=== PATIENT | male | born 1955 | race Caucasian/White ===

== ENCOUNTER 2017-04-16 07:17 | Outpatient (CLI) | payer MEDICARE, MEDICAID | END 2017-04-16 07:18 | disposition home or self-care (01) | LOC: BICULT 07:17 | PROVIDERS: ATTEND Family Medicine | DX: R32 Unspecified urinary incontinence (principal) | CPT/HCPCS: 76856 ==

== ENCOUNTER 2017-06-17 19:30 | Outpatient (CLI) | payer MEDICARE, MEDICAID | END 2017-06-17 19:31 | disposition home or self-care (01) | LOC: SLEEPLAB 19:30 | PROVIDERS: ATTEND Family Medicine | DX: G47.33 Obstructive sleep apnea (adult) (pediatric) (principal); G47.61 Periodic limb movement disorder; G31.84 Mild cognitive impairment of uncertain or unknown etiology; E66.9 Obesity, unspecified; I10 Essential (primary) hypertension | CPT/HCPCS: 95811 ==

== ENCOUNTER 2017-11-11 03:46 | Emergency (ER) | payer MEDICARE, MEDICAID ==
[2017-11-11] MEDS ORDERED: Ketorolac Tromethamine 30 MG/ML VIAL ONE (05:44)
--- NOTE | 2017-11-11 09:16 | CT ---
PRELIMINARY REPORT/[facility]/EMERGENTY AFTER-HOURS PROCEDURE CT Chest Without Intravenous Contrast CLINICAL HISTORY: 62 years old, male; Injury or trauma; Fall; Initial encounter; Abrasion; Patient HX: Pt fell at [facility]. Pt having rt elbow pain and some rt sided chest pain. Pt in a [place] [facility] and a nurse saw it over skype and wanted him to come in. Pt denies hitting head or loc. TECHNIQUE: Axial computed tomography images of the chest without intravenous contrast. Coronal reformatted images were created and reviewed. COMPARISON: No relevant prior studies available. FINDINGS: Lungs: The lungs are normal. Pleural space: Normal. No pneumothorax. No significant effusion. Heart: The cardiac structures are normal. Mediastinum: The trachea is normal. Thyroid: The visualized thyroid gland is unremarkable. Bones/joints: There are healed left rib fractures. No dislocation. Soft tissues: Normal. Vasculature: The pulmonary arteries are not enlarged. The aorta is normal. Lymph nodes: Normal. No enlarged lymph nodes. IMPRESSION: No acute thoracic pathology. Thank you for allowing us to participate in the care of your patient. Dictated and Authenticated by: Fausto Mendoza MD 11/11/2017 6:58 AM Central Time ([place] & [place]) FINAL REPORT CT CHEST NONCONTRAST PERFORMED ON AN EMERGENCY BASIS: Date: 11/11/17 Time: 0528 hours HISTORY: Cough. Chest injury. FINDINGS: Findings agree with the preliminary report by [facility]. No evidence of pneumothorax or displaced rib frac ture. Lack of contrast limits evaluation of the soft tissues. POS: [facility]
== END 2017-11-11 07:50 | disposition home or self-care (01) ==
LOC: ERS 03:46
DX: S20.211A Contusion of right front wall of thorax, initial encounter (principal); E78.00 Pure hypercholesterolemia, unspecified; F32.9 Major depressive disorder, single episode, unspecified; F17.210 Nicotine dependence, cigarettes, uncomplicated; G47.30 Sleep apnea, unspecified; G47.00 Insomnia, unspecified; Z79.899 Other long term (current) drug therapy; W17.89XA Other fall from one level to another, initial encounter; Y92.129 Unspecified place in nursing home as the place of occurrence of the external cause
CPT/HCPCS: 71250; 96372; J1885

== ENCOUNTER 2018-01-14 20:30 | Outpatient (CLI) | payer MEDICARE, MEDICAID | END 2018-01-14 20:31 | disposition home or self-care (01) | LOC: SLEEPLAB 20:30 | PROVIDERS: ATTEND Family Medicine | DX: G47.33 Obstructive sleep apnea (adult) (pediatric) (principal); R53.83 Other fatigue; F32.9 Major depressive disorder, single episode, unspecified; E66.9 Obesity, unspecified; G31.84 Mild cognitive impairment of uncertain or unknown etiology; Z68.33 Body mass index [BMI] 33.0-33.9, adult | CPT/HCPCS: 95811 ==

== ENCOUNTER 2020-02-22 20:50 | Emergency (ER) | payer MEDICARE, MEDICAID ==
[~2020-02-22 20:50] MED LIST: Iopamidol 370 76% 100 ML VIAL ONE
[2020-02-22 22:14] LABS: #Basophils 0.1 thou/uL (0.0-0.2); #Eosinphils 0.3 thou/uL (0.0-0.7); #Lymphocytes 3.6 thou/uL (1.20-3.40); #Monocytes 0.8 thou/uL (0.11-0.59); #Neutrophils 5.3 thou/uL (1.40-6.50); %Basophils 0.8 % (0.0-1.0); %Eosinophils 3.1 % (0.0-10.0); %Lymphocytes 35.4 % (21.0-51.0); %Monocytes 8.2 % (0.0-10.0); %Neutrophils 52.5 % (42.0-75.0); Hemoglobin 13.6 g/dL (14.0-18.0); Mean Corpuscular HGB CONC 34.3 g/dL (32.0-36.0); Mean Corpuscular Hemoglobin 31.4 pg (27.0-31.0); Mean Corpuscular Volume 91.5 fL (78.0-98.0); Mean Platelet Volume 7.2 fL (7.4-10.4); Platelet Count 251 thou/uL (130-400); RBC Distribution Width 12.3 % (11.5-14.5); Red Blood Cell (RBC) Count 4.33 mill/uL (4.70-6.10)
[2020-02-22 22:44] LABS: ALT (SGPT) 21 U/L (8-55); AST (SGOT) 23 U/L (5-34); Alkaline Phosphatase 48 U/L (40-110); Anion Gap 12 mmol/L (10-20); BUN (Urea Nitrogen) 18 mg/dL (8.4-25.7); Bilirubin, Total 0.3 mg/dL (0.2-1.2); Calc. Creatinine Clearance 0 mL/min (70-130); Calcium 9.1 mg/dL (7.8-10.44); Carbon Dioxide 23 mmol/L (23-31); Chloride 107 mmol/L (98-107); Estimated GFR-MDRD 52; Globulin 3.1 g/dL (2.4-3.5); Glucose 96 mg/dL (80-115); Protein, Total 7.1 g/dL (5.8-8.1); Sodium 138 mmol/L (136-145)
--- NOTE | 2020-02-22 23:36 | CT ---
CT OF THE ABDOMEN AND PELVIS WITH IV CONTRAST INDICATION: History of rectal bleeding following placement of a shampoo bottle of the rectum. COMPARISON: None FINDINGS: ABDOMEN: Lung bases: Clear Liver: No focal lesion. Gallbladder: Normal appearing. Pancreas: Normal. Adrenal glands: Normal. Spleen: Normal. Kidneys and ureters: There is a 1.8 cm superior pole right renal cyst. There is a 2.5 cm cyst in the right mid kidney. No focal left renal lesion is evident. No hydronephrosis is demonstrated. Vasculature: There are mild vascular calcifications seen involving the visualized vasculature. Lymph nodes:No lymphadenopathy. Free fluid in abdomen:No free fluid is evident. PELVIS: Small and large bowel: Normal. There is a radiopaque density within the stomach which is nonspecific. There is a focal area of wall thickening involving the mid to proximal sigmoid colon which may be related to underdistention; however, focal colonic lesion cannot be entirely excluded. This is best s een on image 52 of series 2. Appendix:Normal Bladder: Normal. Rectal and perirectal soft tissues:Normal. Reproductive structures: Normal. Free fluid in pelvis: No free fluid is evident. Lymphadenopathy pelvis: No lymphadenopathy is evident. Osseous structures: There are remote appearing superior endplate compression abnormalities involving L5, L1, T12 and T11. There are bilateral pars defects at L5 with grade 1 anterolisthesis of L5 on S1. There is scattered degenerative and osteoarthritic changes. Soft tissues:Normal. IMPRESSION: 1. Small radiopaque density in the stomach is suspicious for radiopaque foreign body. This measures a pproximately 2.5 cm. 2. Focal area of mild circumferential wall thickening involving the mid to proximal sigmoid colon may be related to underdistention; however, a focal colonic malignancy is not excluded. Recommend appropriate colonic screening. This can be performed in a nonemergent setting. 3. Right renal cysts. 4. Remote appearing superior endplate compression abnormalities involving T11, T12, L1 and L5.
[2020-02-22 23:59] LABS: Prothrombin Time 13.3 sec (12.0-14.7)
[2020-02-23 00:10] LABS: Bilirubin Negative (Negative); Blood, Urine Negative (Negative); Clarity Clear (Clear); Glucose, Urine (Dipstick) Normal (Negative); Ketone, Urine Negative (Negative); Leukocyte Negative Leu/uL (Negative); Nitrite Negative (Negative); Protein, Urine (Dipstick) Negative (Neg-Trace); Specific Gravity, Urine 1.013 (1.002-1.036); Urobilinogen Normal mg/dL (Less than 2); pH, Urine 6.5 (5.0-9.0)
== END 2020-02-23 00:36 | disposition home or self-care (01) ==
LOC: ERS 20:50
DX: T18.2XXA Foreign body in stomach, initial encounter (principal); K62.5 Hemorrhage of anus and rectum; G47.00 Insomnia, unspecified; E78.00 Pure hypercholesterolemia, unspecified; G47.30 Sleep apnea, unspecified; F63.9 Impulse disorder, unspecified; F32.9 Major depressive disorder, single episode, unspecified; F17.210 Nicotine dependence, cigarettes, uncomplicated; K64.8 Other hemorrhoids; Z79.899 Other long term (current) drug therapy
CPT/HCPCS: 36415; 74177; 80053; 81003; 84484; 85025; 85610; 85730; 86850; 86900; 86901; 93005; Q9967

== ENCOUNTER 2020-04-19 17:04 | Emergency (ER) | payer MEDICARE, MEDICAID ==
--- NOTE | 2020-04-19 18:07 | CT ---
Exam: Head CT without contrast HISTORY: Fall. Altered mental status. COMPARISON: none FINDINGS: Hemorrhage: No intraparenchymal hemorrhage or extra-axial hematoma. Brain parenchyma: Cortical jacinto-white matter differentiation is preserved. No mass effect or midline shift. Basilar cisterns are patent. Ventricular system: Ventricles and sulci are patent and symmetric. Calvarium: Intact. Sinuses and mastoid air cells: Adequate aeration. IMPRESSION: No acute intracranial process.
--- NOTE | 2020-04-23 16:53 | EKG ---
Test Reason : Blood Pressure : / mmHG Vent. Rate : 073 BPM Atrial Rate : 073 BPM P-R Int : 228 ms QRS Dur : 128 ms QT Int : 388 ms P-R-T Axes : 034 -19 023 degrees QTc Int : 427 ms Sinus rhythm with 1st degree A-V block Non-specific intra-ventricular conduction block Abnormal ECG Confirmed by ALINE FRAZIER ([id number]), research editor EMILIA VALLES ([id number]) on 04/23/2020 4:52:57 PM Referred By: Confirmed By:ALINE Reno
== END 2020-04-19 18:47 | disposition home or self-care (01) ==
LOC: ERS 17:04
DX: S00.01XA Abrasion of scalp, initial encounter (principal); G47.00 Insomnia, unspecified; E78.00 Pure hypercholesterolemia, unspecified; G47.30 Sleep apnea, unspecified; F17.210 Nicotine dependence, cigarettes, uncomplicated; W06.XXXA Fall from bed, initial encounter; Z79.899 Other long term (current) drug therapy
CPT/HCPCS: 70450; 93005

== ENCOUNTER 2020-05-24 06:35 | Day surgery (SDC) | payer MEDICARE, MEDICAID ==
[2020-05-24] MEDS ORDERED: PROPOFOL 200 MG/20 ML VIAL ONE (08:43)
--- NOTE | 2020-05-24 10:25 | OP ---
DATE OF PROCEDURE: 05/24/2020 PROCEDURES: Esophagogastroduodenoscopy and incomplete colonoscopy. PREOPERATIVE DIAGNOSES: Abnormal CT scan of the abdomen and pelvis showing a possible foreign body in the stomach and thickening of the sigmoid colon, also history of hematochezia, has had chronic constipation as well. DESCRIPTION OF PROCEDURE: Informed consent was obtained. The patient was sedated with total intravenous anesthesia. The bite block was placed and the endoscope was advanced easily to the second portion of the duodenum and retroflexion was performed in the stomach. The esophagus was normal. The GE junction was normal. The stomach was normal including retroflexed views. The pylorus and first and second portions of the duodenum were normal. The patient was turned around. Rectal exam was performed and was normal. The preparation quality was fair and a significant amount of stool was irrigated from the colon. The colonoscope was advanced to the transverse colon. The scope could not be advanced beyond this point due to significant looping in the sigmoid, despite repositioning the patient in abdominal pressure. The mucosa of the transverse and descending and sigmoid and rectum were normal. Retroflexed views in the rectum revealed [id number] internal hemorrhoids. IMPRESSION: 1. Normal esophagogastroduodenoscopy. 2. Colonoscopy to the transverse colon was normal. 3. Incomplete exam due to significant looping in the left colon. 4. The thickening of the sigmoid colon noted by CT scan was likely due to non-distention. There was no mucosal abnormality in the segment. The hematochezia was likely hemorrhoidal. RECOMMENDATIONS: 1. Repeat colonoscopy in 5 years. 2. If the patient has recurrent bleeding, then consider barium enema versus CT colonography. Job ID: [id number]
[2020-05-24] MEDS ORDERED: MD-Gastroview 120 ML BOT ONE (14:13)
--- NOTE | 2020-05-24 15:06 | RAD ---
Barium enema single column HISTORY: Screening. Incomplete colonoscopy. FINDINGS: Thin barium liquid was administered per rectum under fluoroscopic guidance. The sigmoid col on and splenic flexure are very tortuous. Scattered small diverticula arise from the colon. No persistent filling defect or annular constricting lesion. Terminal ileum was partially reflux without focal abnormality. IMPRESSION : Tortuous sigmoid colon and splenic flexure. No acute abnormalities are demonstrated. Mild diverticulosis. No evidence of diverticulitis.
== END 2020-05-24 14:24 | disposition home or self-care (01) ==
LOC: SDC 06:35
PROVIDERS: ATTEND Internal Medicine Gastroenterology
PROC: 0DJ08ZZ Inspection of Upper Intestinal Tract, Via Natural or Artificial Opening Endoscopic (ICD-10-PCS; principal; 2020-05-24)
PROC: 0DJD8ZZ Inspection of Lower Intestinal Tract, Via Natural or Artificial Opening Endoscopic (ICD-10-PCS; 2020-05-24)
DX: K92.1 Melena (principal); K59.09 Other constipation; K64.8 Other hemorrhoids; K57.30 Diverticulosis of large intestine without perforation or abscess without bleeding; Q43.8 Other specified congenital malformations of intestine; F79 Unspecified intellectual disabilities; F32.9 Major depressive disorder, single episode, unspecified; E78.1 Pure hyperglyceridemia; G47.33 Obstructive sleep apnea (adult) (pediatric); F17.210 Nicotine dependence, cigarettes, uncomplicated; Z79.2 Long term (current) use of antibiotics; Z79.899 Other long term (current) drug therapy; Z88.2 Allergy status to sulfonamides
CPT/HCPCS: 74280; J2704; Q9963

== ENCOUNTER 2020-06-09 10:04 | Emergency (ER) | payer MEDICARE, MEDICAID | END 2020-06-09 11:11 | disposition home or self-care (01) | LOC: ERS 10:04 | DX: Z20.822 Contact with and (suspected) exposure to COVID-19 (principal); E78.00 Pure hypercholesterolemia, unspecified; F17.210 Nicotine dependence, cigarettes, uncomplicated | CPT/HCPCS: 99283 ==

== ENCOUNTER 2021-05-07 18:41 | Emergency (ER) | payer OTHER, MEDICARE, MEDICAID ==
[2021-05-07] MEDS ORDERED: Boostrix 0.5 ML (Tdap) VIAL ONE (20:28)
== END 2021-05-07 20:45 | disposition home or self-care (01) ==
LOC: ERS 18:41
DX: S00.83XA Contusion of other part of head, initial encounter (principal); Z79.899 Other long term (current) drug therapy; W01.0XXA Fall on same level from slipping, tripping and stumbling without subsequent striking against object, initial encounter
CPT/HCPCS: 70450; 72125; 90471; 90715

== ENCOUNTER 2021-05-18 20:12 | Emergency (ER) | payer MEDICARE, MEDICAID ==
[2021-05-18] MEDS ORDERED: Bacitracin 1 PK ONE (21:35)
== END 2021-05-18 22:22 | disposition home or self-care (01) ==
LOC: ERS 20:12
DX: S63.255A Unspecified dislocation of left ring finger, initial encounter (principal); W19.XXXA Unspecified fall, initial encounter
CPT/HCPCS: 26770

== ENCOUNTER 2021-05-22 12:15 | Outpatient (CLI) | payer MEDICARE, MEDICAID | END 2021-05-22 12:16 | disposition home or self-care (01) | LOC: BICRAD 12:15 | PROVIDERS: ATTEND Family Medicine | DX: S63.104A Unspecified dislocation of right thumb, initial encounter (principal); S62.521A Displaced fracture of distal phalanx of right thumb, initial encounter for closed fracture; W19.XXXA Unspecified fall, initial encounter ==

== ENCOUNTER 2023-01-10 12:01 | Emergency (ER) | payer MEDICARE, MEDICAID ==
[~2023-01-10 12:01] MED LIST changes: -Iopamidol 370 76% 100 ML VIAL ONE; +Iopamidol-370 76% 500 ML MDV (1 ML CHARGE) ONE
[2023-01-10 13:06] LABS: #Eosinphils 0.1 thou/uL (0.0-0.7); #Monocytes 0.6 thou/uL (0.11-0.59); #Neutrophils 5.4 thou/uL (1.40-6.50); %Basophils 0.4 % (0.0-1.0); %Lymphocytes 24.7 % (21.0-51.0); %Monocytes 7.5 % (0.0-10.0); %Neutrophils 66.2 % (42.0-75.0); Hematocrit 41.1 % (42.0-52.0); Mean Corpuscular HGB CONC 34.1 g/dL (32.0-36.0); Mean Corpuscular Hemoglobin 30.7 pg (27.0-31.0); Mean Corpuscular Volume 90.1 fl (78.0-98.0); Mean Platelet Volume 9.4 fL (7.4-10.4); Platelet Count 236 10x3/uL (130-400); RBC Distribution Width 12.9 % (11.5-14.5); Red Blood Cell (RBC) Count 4.56 mill/uL (4.70-6.10); White Blood Cell (WBC) Count 8.1 10x3/uL (4.8-10.8)
[2023-01-10 13:30] LABS: ALT (SGPT) 18 U/L (8-55); AST (SGOT) 17 U/L (5-34); Albumin 4.3 g/dL (3.4-4.8); Alkaline Phosphatase 53 U/L (40-110); Anion Gap 11 mmol/L (10-20); BUN (Urea Nitrogen) 34 mg/dL (8.4-25.7); Bilirubin, Total 0.4 mg/dL (0.2-1.2); Calc. Creatinine Clearance 0 mL/min (70-130); Calcium 9.6 mg/dL (7.8-10.44); Carbon Dioxide 21 mmol/L (23-31); Chloride 113 mmol/L (98-107); Estimated GFR 85; Globulin 2.9 g/dL (2.4-3.5); Glucose 106 mg/dL (80-115); Lipase 38 U/L (8-78); Potassium 3.8 mmol/L (3.5-5.1); Protein, Total 7.2 g/dL (5.8-8.1); Sodium 141 mmol/L (136-145)
[2023-01-10 13:49] LABS: Bilirubin Negative (Negative); Blood, Urine Negative (Negative); CAUTI Indications for Culture Pelvic or flank pain; Clarity Clear (Clear); Glucose, Urine (Dipstick) Normal (Negative); Ketone, Urine Negative (Negative); Leukocyte Negative Leu/uL (Negative); Nitrite Negative (Negative); Protein, Urine (Dipstick) Negative (Neg-Trace); RBC/HPF 0-3 HPF (0-3); Specific Gravity, Urine 1.027 (1.002-1.036); Squamous Epithelial 0-3 HPF (0-3); Urobilinogen Normal mg/dL (Less than 2)
[2023-01-10 13:52] LABS: Bacteria/HPF 1+ HPF (None Seen)
[2023-01-10 13:54] LABS: Urine Culture Reflex No No
== END 2023-01-10 16:12 | disposition home or self-care (01) ==
LOC: ERS 12:01
DX: R19.7 Diarrhea, unspecified (principal); F17.210 Nicotine dependence, cigarettes, uncomplicated
CPT/HCPCS: 74177; 80053; 81001; 83690; 85025; Q9967

== ENCOUNTER 2024-02-20 11:28 | Emergency (ER) | payer MEDICARE, MEDICAID ==
[2024-02-20] MEDS ORDERED: Acetaminophen 500 MG TAB ONE (12:51)
== END 2024-02-20 13:21 | disposition home or self-care (01) ==
LOC: ERS 11:28
DX: M25.552 Pain in left hip (principal); F17.210 Nicotine dependence, cigarettes, uncomplicated; I10 Essential (primary) hypertension
CPT/HCPCS: 99283

== ENCOUNTER 2024-02-23 09:49 | Emergency (ER) | payer MEDICARE, MEDICAID ==
[2024-02-23 10:33] LABS: Bacteria/HPF None Seen HPF (None Seen); Bilirubin Negative (Negative); Blood, Urine Negative (Negative); CAUTI Indications for Culture Alt mental st,lethar; Clarity Clear (Clear); Glucose, Urine (Dipstick) Normal (Negative); Ketone, Urine Negative (Negative); Leukocyte Negative Leu/uL (Negative); Nitrite Negative (Negative); Protein, Urine (Dipstick) Negative (Neg-Trace); RBC/HPF None Seen HPF (0-3); Specific Gravity, Urine 1.005 (1.002-1.036); Squamous Epithelial None Seen HPF (0-3); Urobilinogen Normal mg/dL (Less than 2); WBC/HPF 0-3 HPF (0-3)
[2024-02-23 10:36] LABS: #Basophils 0.03 10x3/uL (0.0-0.2); %Basophils 0.3 % (0.0-1.0); %Eosinophils 0.7 % (0.0-10.0); %Lymphocytes 24.5 % (21.0-51.0); %Monocytes 8.9 % (0.0-10.0); %Neutrophils 65.2 % (42.0-75.0); Hematocrit 43.5 % (42.0-52.0); Hemoglobin 14.5 g/dL (14.0-18.0); Mean Corpuscular HGB CONC 33.3 g/dL (32.0-36.0); Mean Corpuscular Hemoglobin 29.8 pg (27.0-31.0); Mean Corpuscular Volume 89.3 fL (78.0-98.0); Platelet Count 263 10x3/uL (130-400); RBC Distribution Width 12.9 % (11.5-14.5); Red Blood Cell (RBC) Count 4.87 mill/uL (4.70-6.10)
[2024-02-23] MEDS ORDERED: Ketorolac Tromethamine 30 MG (1 mL) VIAL ONE (10:36)
[2024-02-23 10:52] LABS: Urine Culture Reflex No No
[2024-02-23 10:59] LABS: ALT (SGPT) 19 U/L (8-55); AST (SGOT) 16 U/L (5-34); Albumin 3.4 g/dL (3.4-4.8); Alkaline Phosphatase 66 U/L (40-110); Anion Gap 11 mmol/L (10-20); BUN (Urea Nitrogen) 19 mg/dL (8.4-25.7); Bilirubin, Total 0.4 mg/dL (0.2-1.2); Calc. Creatinine Clearance 0 mL/min (70-130); Calcium 9.1 mg/dL (7.8-10.44); Carbon Dioxide 23 mmol/L (23-31); Chloride 109 mmol/L (98-107); Estimated GFR 88; Globulin 3.2 g/dL (2.4-3.5); Glucose 100 mg/dL (83-110); Potassium 3.8 mmol/L (3.5-5.1); Protein, Total 6.6 g/dL (5.8-8.1); Sodium 139 mmol/L (136-145)
== END 2024-02-23 14:30 | disposition home or self-care (01) ==
LOC: ERS 09:49
DX: S70.02XA Contusion of left hip, initial encounter (principal); I10 Essential (primary) hypertension; F17.210 Nicotine dependence, cigarettes, uncomplicated; W19.XXXA Unspecified fall, initial encounter; Y93.01 Activity, walking, marching and hiking; Z55.3 Underachievement in school; Z75.3 Unavailability and inaccessibility of health-care facilities
CPT/HCPCS: 36415; 72170; 80053; 81001; 85025; 99284; J1885

== ENCOUNTER 2024-03-16 16:30 | Inpatient (IN) | payer MEDICARE, MEDICAID ==
[2024-03-16] MEDS ORDERED: Ondansetron PF 4 MG/2 ML Vial ONE ×2 (19:04→19:50)
[2024-03-16 20:06] LABS: #Basophils Less than 0.03 10x3/uL (0.0-0.2); #Eosinophils Less than 0.03 10x3/uL (0.0-0.7); %Basophils 0.2 % (0.0-1.0); %Lymphocytes 15.8 % (21.0-51.0); %Monocytes 4.7 % (0.0-10.0); %Neutrophils 79.1 % (42.0-75.0); Hematocrit 53.9 % (42.0-52.0); Hemoglobin 17.4 g/dL (14.0-18.0); Mean Corpuscular HGB CONC 32.3 g/dL (32.0-36.0); Mean Corpuscular Hemoglobin 29.7 pg (27.0-31.0); Mean Corpuscular Volume 92.1 fL (78.0-98.0); Platelet Count 359 10x3/uL (130-400); RBC Distribution Width 13.3 % (11.5-14.5); Red Blood Cell (RBC) Count 5.85 mill/uL (4.70-6.10)
[2024-03-16 20:23] LABS: Anion Gap 21 mmol/L (10-20); BUN (Urea Nitrogen) 46 mg/dL (8.4-25.7); Calc. Creatinine Clearance 0 mL/min (70-130); Carbon Dioxide 14 mmol/L (23-31); Chloride 107 mmol/L (98-107); Potassium 3.6 mmol/L (3.5-5.1); Sodium 138 mmol/L (136-145)
[2024-03-16 20:24] LABS: ALT (SGPT) 25 U/L (8-55); AST (SGOT) 18 U/L (5-34); Albumin 4.4 g/dL (3.4-4.8); Alkaline Phosphatase 85 U/L (40-110); Bilirubin, Total 0.4 mg/dL (0.2-1.2); Calcium 9.7 mg/dL (7.8-10.44); Estimated GFR 36; Globulin 4.7 g/dL (2.4-3.5); Glucose 186 mg/dL (83-110); Lipase 12 U/L (8-78); Protein, Total 9.1 g/dL (5.8-8.1)
[2024-03-16 20:29] LABS: Troponin I 0.013 ng/mL (< 0.028)
[2024-03-16 20:45] LABS: Acetaminophen Less than 10 mcg/mL (Less than 10); Alcohol Less than 10.0 mg/dL (Less than 10); Salicylate Less than 8.0 mg/dL (Less than 8.0)
[2024-03-16] MEDS ORDERED: Pantoprazole 40 MG VIAL ONE (21:05)
[2024-03-16 23:37] LABS: Lactic Acid 4.61 mmol/L (0.5-2.2)
[2024-03-17] MEDS ORDERED: Ondansetron ODT 4 MG TAB PO PRN ×2 (00:48→08:13)
[2024-03-17] MEDS ORDERED: guaiFENesin ER 600 MG TAB PO PRN (00:48)
[2024-03-17 02:16] LABS: Bacteria/HPF None Seen HPF (None Seen); Bilirubin Negative (Negative); Blood, Urine Negative (Negative); CAUTI Indications for Culture Pelvic or flank pain; Clarity Clear (Clear); Glucose, Urine (Dipstick) Normal (Negative); Ketone, Urine Negative (Negative); Leukocyte 75 Leu/uL (Negative); Nitrite Negative (Negative); Protein, Urine (Dipstick) 20 mg/dL (Neg-Trace); RBC/HPF 0-3 HPF (0-3); Squamous Epithelial 0-3 HPF (0-3); Urobilinogen Normal mg/dL (Less than 2); WBC/HPF 0-3 HPF (0-3)
[2024-03-17 02:17] LABS: Specific Gravity, Urine 1.051 (1.002-1.036)
[2024-03-17 02:18] LABS: Urine Culture Reflex No No
[2024-03-17] MEDS: Lactated Ringer's 1,000 ML IV SCH (03:02)
[2024-03-17 03:09] LABS: Amphetamine Not Detected (NotDetected); Barbiturates Screen Not Detected (NotDetected); Benzodiazepine Screen Not Detected (NotDetected); Cocaine Metabolite Screen Not Detected (NotDetected); Methadone Not Detected (NotDetected); Methamphetamine Not Detected (NotDetected); Opiate Screen Not Detected (NotDetected); Oxycodone Screen Not Detected (NotDetected); Phencyclidine (PCP) Not Detected (NotDetected); THC/Cannabinoid Screen Not Detected (NotDetected); Tricyclic Screen Detected (NotDetected)
[2024-03-17 06:11] LABS: #Basophils 0.04 10x3/uL (0.0-0.2); %Basophils 0.4 % (0.0-1.0); %Eosinophils 0.6 % (0.0-10.0); %Lymphocytes 11.2 % (21.0-51.0); %Monocytes 13.1 % (0.0-10.0); %Neutrophils 74.4 % (42.0-75.0); Hematocrit 47.1 % (42.0-52.0); Hemoglobin 14.8 g/dL (14.0-18.0); Mean Corpuscular HGB CONC 31.4 g/dL (32.0-36.0); Mean Corpuscular Hemoglobin 29.6 pg (27.0-31.0); Mean Corpuscular Volume 94.2 fL (78.0-98.0); Mean Platelet Volume 9.2 fL (7.4-10.4); Platelet Count 242 10x3/uL (130-400); RBC Distribution Width 13.5 % (11.5-14.5)
[2024-03-17 06:24] LABS: Lactic Acid 3.26 mmol/L (0.5-2.2)
[2024-03-17 07:22] LABS: Anion Gap 15 mmol/L (10-20); BUN (Urea Nitrogen) 40 mg/dL (8.4-25.7); Calc. Creatinine Clearance 77 mL/min (70-130); Calcium 8.4 mg/dL (7.8-10.44); Carbon Dioxide 18 mmol/L (23-31); Chloride 113 mmol/L (98-107); Estimated GFR 62; Glucose 129 mg/dL (83-110); Potassium 3.4 mmol/L (3.5-5.1); Sodium 143 mmol/L (136-145)
[2024-03-17] MEDS ORDERED: Ondansetron PF 4 MG/2 ML Vial IVP PRN (08:13)
[2024-03-17] MEDS ORDERED: Acetaminophen 325 MG TAB PO PRN (08:13)
[2024-03-17 08:47] VITALS: BMI 32.7
[2024-03-17] MEDS ORDERED: PARoxetine 20 MG TAB PO SCH (09:00)
[2024-03-17] MEDS: Heparin 5,000 UNITS/ML VIAL SC SCH (09:36)
[2024-03-17] MEDS: Potassium Chloride 20 MEQ TAB PO SCH (09:36)
[2024-03-17] MEDS ORDERED: Aripiprazole 10 MG TAB PO SCH (21:00)
[2024-03-18 04:18] LABS: #Basophils Less than 0.03 10x3/uL (0.0-0.2); %Basophils 0.1 % (0.0-1.0); %Eosinophils 1.4 % (0.0-10.0); %Lymphocytes 23.7 % (21.0-51.0); %Monocytes 13.7 % (0.0-10.0); Hematocrit 42.2 % (42.0-52.0); Hemoglobin 14.1 g/dL (14.0-18.0); Mean Corpuscular HGB CONC 33.4 g/dL (32.0-36.0); Mean Corpuscular Hemoglobin 29.8 pg (27.0-31.0); Mean Corpuscular Volume 89.2 fL (78.0-98.0); Mean Platelet Volume 8.8 fL (7.4-10.4); Platelet Count 237 10x3/uL (130-400); RBC Distribution Width 13.3 % (11.5-14.5); Red Blood Cell (RBC) Count 4.73 mill/uL (4.70-6.10)
[2024-03-18 04:40] LABS: Anion Gap 11 mmol/L (10-20); BUN (Urea Nitrogen) 29 mg/dL (8.4-25.7); Calc. Creatinine Clearance 102 mL/min (70-130); Calcium 8.5 mg/dL (7.8-10.44); Carbon Dioxide 24 mmol/L (23-31); Chloride 108 mmol/L (98-107); Estimated GFR 78; Glucose 108 mg/dL (83-110); Potassium 2.9 mmol/L (3.5-5.1); Sodium 140 mmol/L (136-145)
[2024-03-18] MEDS ORDERED: Ondansetron ORAL SOLN. 4 MG/5 ML UDCUP PO PRN (07:06)
[2024-03-18] MEDS: Ondansetron PF 4 MG/2 ML Vial IVP PRN (09:56)
[2024-03-18] MEDS: Potassium Chloride 20 MEQ TAB PO SCH ×3 (09:57→18:12)
[2024-03-18] MEDS: NIFEdipine XL 30 MG ER.TAB PO SCH (09:57)
[2024-03-18] MEDS: Lactated Ringer's 1,000 ML IV SCH ×2 (09:58)
[2024-03-18] MEDS: PARoxetine 20 MG TAB PO SCH (10:01)
[2024-03-18 10:07] LABS: Lactic Acid 1.12 mmol/L (0.5-2.2)
[2024-03-18] MEDS: Atorvastatin Calcium 10 MG TAB PO SCH (12:00)
[2024-03-18] MEDS: Fish Oil 1,000 MG CAP PO SCH (12:00)
[2024-03-18] MEDS: Tamsulosin HCl 0.4 MG CAP PO SCH (12:01)
[2024-03-18] MEDS: Mirabegron ER 25 MG ER.TAB PO SCH (12:01)
[2024-03-18] MEDS: Fluticasone Propionate Nasal Spray 16 gm Bottle NASAL SCH (12:01)
[2024-03-18] MEDS: Topiramate 100 MG TAB PO SCH (12:01)
[2024-03-18] MEDS: Potassium Chloride 20 MEQ in Premix 1 BAG IVPB SCH ×3 (12:19→19:46)
[2024-03-18 13:40] LABS: Campy jejuni + coli by PCR Negative (Negative); STEC Shiga Toxin 1+2 Negative (Negative); Salmonella spp. by PCR Negative (Negative); Shigella spp + EIEC by PCR Negative (Negative)
[2024-03-18 14:38] LABS: Anion Gap 16 mmol/L (10-20); BUN (Urea Nitrogen) 30 mg/dL (8.4-25.7); Calc. Creatinine Clearance 123 mL/min (70-130); Calcium 8.8 mg/dL (7.8-10.44); Carbon Dioxide 19 mmol/L (23-31); Chloride 106 mmol/L (98-107); Estimated GFR 93; Glucose 147 mg/dL (83-110); Potassium 2.8 mmol/L (3.5-5.1); Sodium 138 mmol/L (136-145)
[2024-03-18] MEDS ORDERED: MD-Gastroview 120 ML BOT ONE (16:07)
[2024-03-18] MEDS ORDERED: NIFEdipine XL 30 MG ER.TAB PO SCH (20:00)
[2024-03-18] MEDS ORDERED: Aripiprazole 10 MG TAB PO SCH (21:00)
[2024-03-18] MEDS: Labetalol HCl 100 MG/20 ML VIAL SLOW IVP SCH (21:30)
[2024-03-18] MEDS: Promethazine HCl 25 MG in Sodium Chloride 0.9% 50 ML IVPB PRN (23:01)
[2024-03-19 04:43] LABS: #Basophils Less than 0.03 10x3/uL (0.0-0.2); #Eosinophils Less than 0.03 10x3/uL (0.0-0.7); %Basophils 0.2 % (0.0-1.0); %Eosinophils 0.1 % (0.0-10.0); %Lymphocytes 18.1 % (21.0-51.0); %Monocytes 11.3 % (0.0-10.0); %Neutrophils 69.9 % (42.0-75.0); Hematocrit 42.3 % (42.0-52.0); Hemoglobin 14.2 g/dL (14.0-18.0); Mean Corpuscular HGB CONC 33.6 g/dL (32.0-36.0); Mean Corpuscular Hemoglobin 29.9 pg (27.0-31.0); Mean Corpuscular Volume 89.1 fL (78.0-98.0); Mean Platelet Volume 9.1 fL (7.4-10.4); Platelet Count 242 10x3/uL (130-400); RBC Distribution Width 13.2 % (11.5-14.5); Red Blood Cell (RBC) Count 4.75 mill/uL (4.70-6.10)
[2024-03-19 05:05] LABS: Anion Gap 13 mmol/L (10-20); BUN (Urea Nitrogen) 28 mg/dL (8.4-25.7); Calc. Creatinine Clearance 123 mL/min (70-130); Calcium 8.5 mg/dL (7.8-10.44); Carbon Dioxide 19 mmol/L (23-31); Chloride 111 mmol/L (98-107); Estimated GFR 93; Glucose 125 mg/dL (83-110); Potassium 2.8 mmol/L (3.5-5.1); Sodium 140 mmol/L (136-145)
[2024-03-19] MEDS ORDERED: Potassium Chloride 20 MEQ in Premix 1 BAG IVPB SCH (07:00)
[2024-03-19] MEDS ORDERED: Lactated Ringer's 1,000 ML IV SCH (07:15)
[2024-03-19 07:45] LABS: Hemoglobin A1c 5.5 % (4.0-6.0)
[2024-03-19] MEDS ORDERED: Potassium Chloride 20 MEQ TAB PO SCH (07:59)
[2024-03-19] MEDS: Potassium Chloride 20 MEQ in Premix 1 BAG IVPB SCH ×2 (10:12→21:41)
[2024-03-19] MEDS ORDERED: Iopamidol-370 76% 500 ML MDV (1 ML CHARGE) ONE (11:51)
[2024-03-19] MEDS: NIFEdipine XL 30 MG ER.TAB PO SCH (12:03)
[2024-03-19] MEDS: Potassium Chloride 20 MEQ in Lactated Ringer's 1,000 ML IV SCH (12:17)
[2024-03-19 14:19] LABS: Anion Gap 12 mmol/L (10-20); BUN (Urea Nitrogen) 27 mg/dL (8.4-25.7); Calc. Creatinine Clearance 132 mL/min (70-130); Calcium 8.7 mg/dL (7.8-10.44); Carbon Dioxide 22 mmol/L (23-31); Chloride 112 mmol/L (98-107); Estimated GFR 95; Glucose 123 mg/dL (83-110); Potassium 2.7 mmol/L (3.5-5.1); Sodium 143 mmol/L (136-145)
[2024-03-19 18:48] LABS: Anion Gap 14 mmol/L (10-20); BUN (Urea Nitrogen) 27 mg/dL (8.4-25.7); Calc. Creatinine Clearance 132 mL/min (70-130); Calcium 8.2 mg/dL (7.8-10.44); Carbon Dioxide 15 mmol/L (23-31); Chloride 115 mmol/L (98-107); Estimated GFR 95; Glucose 123 mg/dL (83-110); Potassium 3.1 mmol/L (3.5-5.1); Sodium 141 mmol/L (136-145)
[2024-03-20 04:44] LABS: #Basophils 0.03 10x3/uL (0.0-0.2); %Basophils 0.3 % (0.0-1.0); %Eosinophils 0.6 % (0.0-10.0); %Monocytes 9.4 % (0.0-10.0); Hematocrit 38.4 % (42.0-52.0); Mean Corpuscular HGB CONC 33.9 g/dL (32.0-36.0); Mean Corpuscular Hemoglobin 29.5 pg (27.0-31.0); Mean Corpuscular Volume 87.3 fL (78.0-98.0); Platelet Count 208 10x3/uL (130-400); RBC Distribution Width 13.3 % (11.5-14.5)
[2024-03-20 05:11] LABS: Anion Gap 12 mmol/L (10-20); BUN (Urea Nitrogen) 20 mg/dL (8.4-25.7); Calc. Creatinine Clearance 143 mL/min (70-130); Carbon Dioxide 21 mmol/L (23-31); Chloride 112 mmol/L (98-107); Estimated GFR 97; Glucose 103 mg/dL (83-110); Potassium 2.9 mmol/L (3.5-5.1); Sodium 142 mmol/L (136-145)
[2024-03-20] MEDS: Potassium Chloride 20 MEQ in Premix 1 BAG IVPB SCH (10:51)
[2024-03-20] MEDS ORDERED: Enalaprilat Dihydrate 1.25 MG in Dextrose 5% in Water 50 ML SLOW IVP SCH (12:00)
[2024-03-20] MEDS: Enalaprilat Dihydrate 1.25 MG/ML VIAL SLOW IVP SCH (13:31)
[2024-03-20 14:31] LABS: Anion Gap 14 mmol/L (10-20); BUN (Urea Nitrogen) 16 mg/dL (8.4-25.7); Calc. Creatinine Clearance 165 mL/min (70-130); Calcium 8.1 mg/dL (7.8-10.44); Carbon Dioxide 22 mmol/L (23-31); Chloride 108 mmol/L (98-107); Estimated GFR 102; Glucose 101 mg/dL (83-110); Potassium 3.3 mmol/L (3.5-5.1); Sodium 141 mmol/L (136-145)
[2024-03-20] MEDS: Labetalol HCl 100 MG/20 ML VIAL SLOW IVP PRN (15:29)
[2024-03-20 19:24] LABS: Anion Gap 13 mmol/L (10-20); BUN (Urea Nitrogen) 16 mg/dL (8.4-25.7); Calc. Creatinine Clearance 170 mL/min (70-130); Calcium 8.2 mg/dL (7.8-10.44); Carbon Dioxide 21 mmol/L (23-31); Chloride 109 mmol/L (98-107); Estimated GFR 103; Glucose 103 mg/dL (83-110); Potassium 3.6 mmol/L (3.5-5.1); Sodium 139 mmol/L (136-145)
[2024-03-21 05:17] LABS: #Basophils 0.05 10x3/uL (0.0-0.2); %Basophils 0.4 % (0.0-1.0); %Eosinophils 0.8 % (0.0-10.0); %Lymphocytes 19.6 % (21.0-51.0); %Monocytes 9.3 % (0.0-10.0); %Neutrophils 67.7 % (42.0-75.0); Hematocrit 41.9 % (42.0-52.0); Mean Corpuscular HGB CONC 33.4 g/dL (32.0-36.0); Mean Corpuscular Hemoglobin 29.7 pg (27.0-31.0); Mean Corpuscular Volume 88.8 fL (78.0-98.0); Mean Platelet Volume 9.3 fL (7.4-10.4); Platelet Count 238 10x3/uL (130-400); RBC Distribution Width 13.2 % (11.5-14.5); Red Blood Cell (RBC) Count 4.72 mill/uL (4.70-6.10)
[2024-03-21 05:52] LABS: Anion Gap 15 mmol/L (10-20); BUN (Urea Nitrogen) 16 mg/dL (8.4-25.7); Calc. Creatinine Clearance 153 mL/min (70-130); Calcium 8.4 mg/dL (7.8-10.44); Carbon Dioxide 19 mmol/L (23-31); Chloride 109 mmol/L (98-107); Estimated GFR 99; Glucose 101 mg/dL (83-110); Potassium 3.7 mmol/L (3.5-5.1); Sodium 139 mmol/L (136-145)
[2024-03-21] MEDS ORDERED: PROPOFOL 40 ML ONE (08:05)
[2024-03-21] MEDS ORDERED: Lidocaine 1% PF 5 ML VIAL ONE (08:14)
[2024-03-21] MEDS ORDERED: PROPOFOL 20 ML ONE (08:36)
[2024-03-22 04:37] LABS: #Basophils 0.08 10x3/uL (0.0-0.2); %Basophils 0.6 % (0.0-1.0); %Eosinophils 1.3 % (0.0-10.0); %Lymphocytes 24.7 % (21.0-51.0); %Neutrophils 60.8 % (42.0-75.0); Hematocrit 42.1 % (42.0-52.0); Hemoglobin 13.6 g/dL (14.0-18.0); Mean Corpuscular HGB CONC 32.3 g/dL (32.0-36.0); Mean Corpuscular Hemoglobin 29.4 pg (27.0-31.0); Mean Corpuscular Volume 91.1 fL (78.0-98.0); Mean Platelet Volume 9.2 fL (7.4-10.4); Platelet Count 207 10x3/uL (130-400); RBC Distribution Width 13.2 % (11.5-14.5); Red Blood Cell (RBC) Count 4.62 mill/uL (4.70-6.10)
[2024-03-22 05:05] LABS: Anion Gap 15 mmol/L (10-20); BUN (Urea Nitrogen) 16 mg/dL (8.4-25.7); Calc. Creatinine Clearance 154 mL/min (70-130); Calcium 8.1 mg/dL (7.8-10.44); Carbon Dioxide 21 mmol/L (23-31); Chloride 106 mmol/L (98-107); Estimated GFR 100; Glucose 81 mg/dL (83-110); Potassium 3.6 mmol/L (3.5-5.1); Sodium 138 mmol/L (136-145)
[2024-03-22] MEDS: Acetaminophen 325 MG TAB PO PRN (16:12)
[2024-03-22] MEDS: NIFEdipine XL 30 MG ER.TAB PO SCH (16:15)
[2024-03-23 06:23] LABS: #Basophils 0.03 10x3/uL (0.0-0.2); %Basophils 0.3 % (0.0-1.0); %Eosinophils 1.2 % (0.0-10.0); %Lymphocytes 25.3 % (21.0-51.0); %Monocytes 9.2 % (0.0-10.0); Hematocrit 42.2 % (42.0-52.0); Hemoglobin 14.1 g/dL (14.0-18.0); Mean Corpuscular HGB CONC 33.4 g/dL (32.0-36.0); Mean Corpuscular Hemoglobin 29.7 pg (27.0-31.0); Mean Corpuscular Volume 88.8 fL (78.0-98.0); Mean Platelet Volume 8.9 fL (7.4-10.4); Platelet Count 224 10x3/uL (130-400); RBC Distribution Width 13.1 % (11.5-14.5); Red Blood Cell (RBC) Count 4.75 mill/uL (4.70-6.10)
[2024-03-23 06:50] LABS: Anion Gap 17 mmol/L (10-20); BUN (Urea Nitrogen) 11 mg/dL (8.4-25.7); Calc. Creatinine Clearance 132 mL/min (70-130); Calcium 8.5 mg/dL (7.8-10.44); Carbon Dioxide 24 mmol/L (23-31); Chloride 101 mmol/L (98-107); Estimated GFR 96; Glucose 99 mg/dL (83-110); Potassium 3.6 mmol/L (3.5-5.1); Sodium 138 mmol/L (136-145)
[2024-03-23] MEDS: NIFEdipine XL 30 MG ER.TAB PO SCH (08:49)
[2024-03-24 04:47] LABS: #Basophils 0.03 10x3/uL (0.0-0.2); %Basophils 0.2 % (0.0-1.0); %Lymphocytes 22.3 % (21.0-51.0); %Monocytes 6.7 % (0.0-10.0); %Neutrophils 68.7 % (42.0-75.0); Hematocrit 41.8 % (42.0-52.0); Hemoglobin 13.9 g/dL (14.0-18.0); Mean Corpuscular HGB CONC 33.3 g/dL (32.0-36.0); Mean Corpuscular Hemoglobin 29.5 pg (27.0-31.0); Mean Corpuscular Volume 88.7 fL (78.0-98.0); Mean Platelet Volume 9.7 fL (7.4-10.4); Platelet Count 267 10x3/uL (130-400); RBC Distribution Width 13.3 % (11.5-14.5); Red Blood Cell (RBC) Count 4.71 mill/uL (4.70-6.10)
[2024-03-24 05:08] LABS: Anion Gap 14 mmol/L (10-20); BUN (Urea Nitrogen) 13 mg/dL (8.4-25.7); Calc. Creatinine Clearance 132 mL/min (70-130); Calcium 8.4 mg/dL (7.8-10.44); Carbon Dioxide 24 mmol/L (23-31); Chloride 104 mmol/L (98-107); Estimated GFR 96; Glucose 110 mg/dL (83-110); Potassium 3.6 mmol/L (3.5-5.1); Sodium 138 mmol/L (136-145)
[2024-03-24] MEDS: Metoprolol Tartrate 50 MG TAB PO SCH (11:24)
[2024-03-24 15:00] LABS: Bilirubin Small (Negative); Blood, Urine Large (Negative); Glucose, Urine (Dipstick) Negative (Negative); Ketone, Urine Negative (Negative); Leukocyte Moderate (Negative); Nitrite Positive (Negative); Protein, Urine (Dipstick) 100 mg/dL (Neg-Trace); Specific Gravity, Urine 1.025 (1.005-1.030); pH, Urine 6.5 (5.0-9.0)
[2024-03-24 15:09] LABS: Clarity Turbid (Clear)
[2024-03-24 15:32] LABS: Bacteria/HPF 2+ HPF (None Seen); RBC/HPF 21-50 HPF (0-3); Squamous Epithelial 0-3 HPF (0-3)
[2024-03-24] MEDS: cefTRIAXone\\ROCEPHIN 1 GM in Sodium Chloride 0.9% 100 ML IVPB SCH (17:18)
[2024-03-25 04:52] LABS: #Basophils Less than 0.03 10x3/uL (0.0-0.2); %Basophils 0.2 % (0.0-1.0); %Eosinophils 1.1 % (0.0-10.0); %Lymphocytes 16.3 % (21.0-51.0); %Neutrophils 75.5 % (42.0-75.0); Hematocrit 39.9 % (42.0-52.0); Hemoglobin 13.1 g/dL (14.0-18.0); Mean Corpuscular HGB CONC 32.8 g/dL (32.0-36.0); Mean Corpuscular Hemoglobin 29.9 pg (27.0-31.0); Mean Corpuscular Volume 91.1 fL (78.0-98.0); Mean Platelet Volume 9.3 fL (7.4-10.4); Platelet Count 256 10x3/uL (130-400); RBC Distribution Width 13.2 % (11.5-14.5); Red Blood Cell (RBC) Count 4.38 mill/uL (4.70-6.10)
[2024-03-25 05:04] LABS: Anion Gap 13 mmol/L (10-20); BUN (Urea Nitrogen) 12 mg/dL (8.4-25.7); Calc. Creatinine Clearance 134 mL/min (70-130); Calcium 8.3 mg/dL (7.8-10.44); Carbon Dioxide 25 mmol/L (23-31); Chloride 102 mmol/L (98-107); Estimated GFR 95; Glucose 138 mg/dL (83-110); Potassium 3.4 mmol/L (3.5-5.1); Sodium 137 mmol/L (136-145)
[2024-03-25] MEDS: Metoprolol Tartrate 50 MG TAB PO SCH (09:24)
[2024-03-25] MEDS: Potassium Chloride 40 MEQ in Premix 1 BAG IVPB SCH (09:26)
[2024-03-25] MEDS: Potassium Chloride 20 MEQ in Premix 1 BAG IVPB SCH (11:42)
[2024-03-25] MEDS: Bisacodyl 10 MG SUPP PR SCH (11:44)
[2024-03-25] MEDS ORDERED: D5W-AA 4.25% with LYTES 1,000 ML IV SCH (17:00)
[2024-03-25] MEDS: Amino Acids 4.25 %/Dextrose 5% 1,000 ML IV SCH (19:17)
[2024-03-26 03:55] LABS: #Basophils 0.03 10x3/uL (0.0-0.2); %Basophils 0.3 % (0.0-1.0); %Eosinophils 1.4 % (0.0-10.0); %Lymphocytes 23.6 % (21.0-51.0); %Monocytes 8.2 % (0.0-10.0); %Neutrophils 65.8 % (42.0-75.0); Hematocrit 43.2 % (42.0-52.0); Hemoglobin 14.1 g/dL (14.0-18.0); Mean Corpuscular HGB CONC 32.6 g/dL (32.0-36.0); Mean Corpuscular Hemoglobin 30.3 pg (27.0-31.0); Mean Corpuscular Volume 92.9 fL (78.0-98.0); Mean Platelet Volume 10.2 fL (7.4-10.4); Platelet Count 237 10x3/uL (130-400); RBC Distribution Width 13.2 % (11.5-14.5); Red Blood Cell (RBC) Count 4.65 mill/uL (4.70-6.10)
[2024-03-26 04:58] LABS: Anion Gap 15 mmol/L (10-20); BUN (Urea Nitrogen) 12 mg/dL (8.4-25.7); Calc. Creatinine Clearance 146 mL/min (70-130); Calcium 8.5 mg/dL (7.8-10.44); Carbon Dioxide 21 mmol/L (23-31); Chloride 107 mmol/L (98-107); Estimated GFR 98; Glucose 118 mg/dL (83-110); Potassium 3.5 mmol/L (3.5-5.1); Sodium 139 mmol/L (136-145)
[2024-03-26] MEDS: Bisacodyl 10 MG SUPP PR SCH (17:25)
[2024-03-27 04:32] LABS: #Basophils Less than 0.03 10x3/uL (0.0-0.2); %Basophils 0.3 % (0.0-1.0); %Eosinophils 2.4 % (0.0-10.0); %Monocytes 8.6 % (0.0-10.0); %Neutrophils 61.1 % (42.0-75.0); Hematocrit 39.9 % (42.0-52.0); Hemoglobin 13.2 g/dL (14.0-18.0); Mean Corpuscular HGB CONC 33.1 g/dL (32.0-36.0); Mean Corpuscular Hemoglobin 29.9 pg (27.0-31.0); Mean Corpuscular Volume 90.3 fL (78.0-98.0); Mean Platelet Volume 9.4 fL (7.4-10.4); Platelet Count 302 10x3/uL (130-400); RBC Distribution Width 13.1 % (11.5-14.5); Red Blood Cell (RBC) Count 4.42 mill/uL (4.70-6.10)
[2024-03-27 04:45] LABS: Anion Gap 12 mmol/L (10-20); BUN (Urea Nitrogen) 14 mg/dL (8.4-25.7); Calc. Creatinine Clearance 125 mL/min (70-130); Calcium 8.4 mg/dL (7.8-10.44); Carbon Dioxide 25 mmol/L (23-31); Chloride 104 mmol/L (98-107); Estimated GFR 94; Glucose 115 mg/dL (83-110); Sodium 138 mmol/L (136-145)
[2024-03-27] MEDS: Potassium Chloride 20 MEQ in Premix 1 BAG IVPB SCH (08:20)
[2024-03-28 04:50] LABS: #Basophils 0.04 10x3/uL (0.0-0.2); %Basophils 0.4 % (0.0-1.0); %Eosinophils 1.3 % (0.0-10.0); %Lymphocytes 23.6 % (21.0-51.0); %Monocytes 9.2 % (0.0-10.0); %Neutrophils 64.7 % (42.0-75.0); Hematocrit 39.3 % (42.0-52.0); Hemoglobin 12.9 g/dL (14.0-18.0); Mean Corpuscular HGB CONC 32.8 g/dL (32.0-36.0); Mean Corpuscular Hemoglobin 29.7 pg (27.0-31.0); Mean Corpuscular Volume 90.3 fL (78.0-98.0); Mean Platelet Volume 9.9 fL (7.4-10.4); Platelet Count 335 10x3/uL (130-400); RBC Distribution Width 13.2 % (11.5-14.5); Red Blood Cell (RBC) Count 4.35 mill/uL (4.70-6.10)
[2024-03-28 05:05] LABS: Anion Gap 11 mmol/L (10-20); BUN (Urea Nitrogen) 17 mg/dL (8.4-25.7); Calc. Creatinine Clearance 126 mL/min (70-130); Calcium 8.5 mg/dL (7.8-10.44); Carbon Dioxide 26 mmol/L (23-31); Chloride 103 mmol/L (98-107); Estimated GFR 94; Glucose 112 mg/dL (83-110); Potassium 3.2 mmol/L (3.5-5.1); Sodium 137 mmol/L (136-145)
[2024-03-28 06:59] LABS: Magnesium 2.1 mg/dL (1.6-2.6)
[2024-03-28] MEDS: Potassium Chloride 20 MEQ in Premix 1 BAG IVPB SCH (08:59)
[2024-03-29 03:59] LABS: #Basophils 0.04 10x3/uL (0.0-0.2); %Basophils 0.4 % (0.0-1.0); %Eosinophils 1.8 % (0.0-10.0); %Lymphocytes 21.5 % (21.0-51.0); %Neutrophils 62.6 % (42.0-75.0); Hemoglobin 13.4 g/dL (14.0-18.0); Mean Corpuscular HGB CONC 31.9 g/dL (32.0-36.0); Mean Corpuscular Hemoglobin 29.7 pg (27.0-31.0); Mean Corpuscular Volume 93.1 fL (78.0-98.0); Platelet Count 274 10x3/uL (130-400); RBC Distribution Width 13.2 % (11.5-14.5); Red Blood Cell (RBC) Count 4.51 mill/uL (4.70-6.10)
[2024-03-29 04:21] LABS: Anion Gap 14 mmol/L (10-20); BUN (Urea Nitrogen) 17 mg/dL (8.4-25.7); Calc. Creatinine Clearance 127 mL/min (70-130); Calcium 8.7 mg/dL (7.8-10.44); Carbon Dioxide 22 mmol/L (23-31); Chloride 105 mmol/L (98-107); Estimated GFR 95; Glucose 99 mg/dL (83-110); Potassium 3.4 mmol/L (3.5-5.1); Sodium 138 mmol/L (136-145)
[2024-03-29] MEDS: Potassium Chloride 20 MEQ in Premix 1 BAG IVPB SCH ×2 (09:32→12:59)
[2024-03-30 04:55] LABS: #Basophils 0.03 10x3/uL (0.0-0.2); %Basophils 0.4 % (0.0-1.0); %Eosinophils 1.8 % (0.0-10.0); %Lymphocytes 24.4 % (21.0-51.0); %Monocytes 12.1 % (0.0-10.0); %Neutrophils 60.6 % (42.0-75.0); Hematocrit 38.1 % (42.0-52.0); Hemoglobin 12.5 g/dL (14.0-18.0); Mean Corpuscular HGB CONC 32.8 g/dL (32.0-36.0); Mean Corpuscular Hemoglobin 30.4 pg (27.0-31.0); Mean Corpuscular Volume 92.7 fL (78.0-98.0); Mean Platelet Volume 9.6 fL (7.4-10.4); Platelet Count 313 10x3/uL (130-400); RBC Distribution Width 13.5 % (11.5-14.5); Red Blood Cell (RBC) Count 4.11 mill/uL (4.70-6.10)
[2024-03-30 05:04] LABS: Anion Gap 13 mmol/L (10-20); BUN (Urea Nitrogen) 13 mg/dL (8.4-25.7); Calc. Creatinine Clearance 121 mL/min (70-130); Calcium 8.5 mg/dL (7.8-10.44); Carbon Dioxide 23 mmol/L (23-31); Chloride 103 mmol/L (98-107); Estimated GFR 94; Glucose 121 mg/dL (83-110); Potassium 3.5 mmol/L (3.5-5.1); Sodium 135 mmol/L (136-145)
[2024-03-31 04:28] LABS: Anion Gap 16 mmol/L (10-20); BUN (Urea Nitrogen) 19 mg/dL (8.4-25.7); Calc. Creatinine Clearance 116 mL/min (70-130); Calcium 9.3 mg/dL (7.8-10.44); Carbon Dioxide 22 mmol/L (23-31); Chloride 104 mmol/L (98-107); Estimated GFR 92; Glucose 127 mg/dL (83-110); Potassium 3.7 mmol/L (3.5-5.1); Sodium 138 mmol/L (136-145)
[2024-04-01] MEDS ORDERED: Bisacodyl 10 MG SUPP ONE ×2 (01:11→09:11)
[2024-04-01] MEDS ORDERED: Enalaprilat Dihydrate 1.25 MG/ML VIAL ONE ×2 (05:11→11:11)
[2024-04-01] MEDS ORDERED: Tamsulosin HCl 0.4 MG CAP ONE (08:11)
[2024-04-01] MEDS ORDERED: Heparin 5,000 UNITS/ML VIAL ONE (08:11)
[2024-04-01] MEDS ORDERED: Metoprolol Tartrate 50 MG TAB ONE (08:11)
[2024-04-01] MEDS ORDERED: NIFEdipine XL 30 MG ER.TAB ONE (09:11)
[2024-04-03 04:53] LABS: Anion Gap 14 mmol/L (10-20); BUN (Urea Nitrogen) 17 mg/dL (8.4-25.7); Calc. Creatinine Clearance 121 mL/min (70-130); Carbon Dioxide 24 mmol/L (23-31); Chloride 102 mmol/L (98-107); Estimated GFR 94; Glucose 113 mg/dL (83-110); Potassium 3.2 mmol/L (3.5-5.1); Sodium 137 mmol/L (136-145)
[2024-04-03] MEDS: Potassium Chloride 20 MEQ TAB ONE (06:31)
[2024-04-03 08:52] VITALS: BMI 31.4
[2024-04-03 11:51] LABS: ALT (SGPT) 51 U/L (8-55); AST (SGOT) 23 U/L (5-34); Albumin 2.8 g/dL (3.4-4.8); Alkaline Phosphatase 62 U/L (40-110); Anion Gap 15 mmol/L (10-20); BUN (Urea Nitrogen) 17 mg/dL (8.4-25.7); Bilirubin, Total 0.4 mg/dL (0.2-1.2); Calc. Creatinine Clearance 126 mL/min (70-130); Calcium 8.8 mg/dL (7.8-10.44); Carbon Dioxide 26 mmol/L (23-31); Chloride 102 mmol/L (98-107); Estimated GFR 95; Globulin 3.7 g/dL (2.4-3.5); Glucose 136 mg/dL (83-110); Potassium 3.2 mmol/L (3.5-5.1); Protein, Total 6.5 g/dL (5.8-8.1); Sodium 140 mmol/L (136-145)
[2024-04-03] MEDS: Potassium Chloride 20 MEQ TAB PO SCH (12:42)
[2024-04-04 06:00] LABS: Anion Gap 15 mmol/L (10-20); BUN (Urea Nitrogen) 15 mg/dL (8.4-25.7); Calc. Creatinine Clearance 120 mL/min (70-130); Calcium 8.8 mg/dL (7.8-10.44); Carbon Dioxide 26 mmol/L (23-31); Chloride 103 mmol/L (98-107); Estimated GFR 93; Glucose 94 mg/dL (83-110); Potassium 3.4 mmol/L (3.5-5.1); Sodium 141 mmol/L (136-145)
[2024-04-04] MEDS: Potassium Chloride 20 MEQ TAB PO SCH (06:56)
[2024-04-04] MEDS: Lisinopril 5 MG TAB PO SCH (08:49)
[2024-04-04 16:28] LABS: #Basophils 0.04 10x3/uL (0.0-0.2); %Basophils 0.6 % (0.0-1.0); %Eosinophils 2.2 % (0.0-10.0); %Monocytes 9.7 % (0.0-10.0); %Neutrophils 56.1 % (42.0-75.0); Hematocrit 42.2 % (42.0-52.0); Hemoglobin 13.1 g/dL (14.0-18.0); Mean Corpuscular Hemoglobin 30.1 pg (27.0-31.0); Mean Platelet Volume 10.3 fL (7.4-10.4); Platelet Count 393 10x3/uL (130-400); RBC Distribution Width 13.9 % (11.5-14.5); Red Blood Cell (RBC) Count 4.35 mill/uL (4.70-6.10)
[2024-04-05 05:23] LABS: Anion Gap 14 mmol/L (10-20); BUN (Urea Nitrogen) 15 mg/dL (8.4-25.7); Calc. Creatinine Clearance 120 mL/min (70-130); Calcium 8.5 mg/dL (7.8-10.44); Carbon Dioxide 26 mmol/L (23-31); Chloride 105 mmol/L (98-107); Estimated GFR 93; Glucose 109 mg/dL (83-110); Potassium 3.5 mmol/L (3.5-5.1); Sodium 141 mmol/L (136-145)
[2024-04-06 04:05] LABS: Anion Gap 13 mmol/L (10-20); BUN (Urea Nitrogen) 15 mg/dL (8.4-25.7); Calc. Creatinine Clearance 124 mL/min (70-130); Carbon Dioxide 25 mmol/L (23-31); Chloride 104 mmol/L (98-107); Potassium 3.4 mmol/L (3.5-5.1); Sodium 139 mmol/L (136-145)
[2024-04-06 04:06] LABS: Calcium 8.8 mg/dL (7.8-10.44); Estimated GFR 94; Glucose 96 mg/dL (83-110)
[2024-04-06] MEDS: Potassium Chloride 20 MEQ TAB PO SCH (10:47)
[2024-04-06 11:06] LABS: Magnesium 2.3 mg/dL (1.6-2.6)
[2024-04-07 05:51] LABS: Anion Gap 12 mmol/L (10-20); BUN (Urea Nitrogen) 16 mg/dL (8.4-25.7); Calc. Creatinine Clearance 120 mL/min (70-130); Calcium 8.8 mg/dL (7.8-10.44); Carbon Dioxide 25 mmol/L (23-31); Chloride 105 mmol/L (98-107); Estimated GFR 93; Glucose 117 mg/dL (83-110); Potassium 3.4 mmol/L (3.5-5.1); Sodium 139 mmol/L (136-145)
[2024-04-07] MEDS: Potassium Chloride 20 MEQ TAB PO SCH (09:05)
[2024-04-07 09:36] VITALS: BP 133/78; TEMP 98.1
[2024-04-10 07:38] LABS: Anion Gap 13 mmol/L (10-20); BUN (Urea Nitrogen) 19 mg/dL (8.4-25.7); Calc. Creatinine Clearance 133 mL/min (70-130); Calcium 8.6 mg/dL (7.6-10.4); Carbon Dioxide 25 mmol/L (23-31); Chloride 104 mmol/L (98-107); Estimated GFR 96; Glucose 110 mg/dL (83-110); Potassium 3.2 mmol/L (3.5-5.1); Sodium 139 mmol/L (136-145)
== END 2024-04-07 10:45 | DRG 388 ==
LOC: ERS 16:30 → ERHOLD 03-17 00:49 → PCU 03-17 08:23 → 2NO 03-17 21:26 → OBSVTOIN 03-18 09:33
PROVIDERS: ADMIT Family Medicine; ATTEND Family Medicine
PROC: 0D9N80Z Drainage of Sigmoid Colon with Drainage Device, Via Natural or Artificial Opening Endoscopic (ICD-10-PCS; principal; 2024-03-21)
DX: K56.2 Volvulus (principal); E43 Unspecified severe protein-calorie malnutrition; E87.20 Acidosis, unspecified; N17.9 Acute kidney failure, unspecified; K59.39 Other megacolon; N39.0 Urinary tract infection, site not specified; R00.0 Tachycardia, unspecified; R31.9 Hematuria, unspecified; E87.6 Hypokalemia; I10 Essential (primary) hypertension; G47.33 Obstructive sleep apnea (adult) (pediatric); F79 Unspecified intellectual disabilities; F32.9 Major depressive disorder, single episode, unspecified; F41.9 Anxiety disorder, unspecified; B96.20 Unspecified Escherichia coli [E. coli] as the cause of diseases classified elsewhere; F17.210 Nicotine dependence, cigarettes, uncomplicated; E86.0 Dehydration; E66.9 Obesity, unspecified; E78.00 Pure hypercholesterolemia, unspecified; Z88.2 Allergy status to sulfonamides; Z79.899 Other long term (current) drug therapy; Z68.31 Body mass index [BMI] 31.0-31.9, adult
CPT/HCPCS: 36415; 36416; 70450; 71045; 74018; 74019; 74177; 74250; 80048; 80053; 80306; 80307; 81001; 82274; 83036; 83605; 83690; 83735; 83880; 84100; 84145; 84443; 84484; 85025; 86141; 87040; 87077; 87086; 87186; 87324; 87428; 87449; 87505; 93005; 93010; 96361; 96372; 96374; 96375; G0378; J0696; J1644; J2405; J2470; J2550; J2704; J3480; J7120; Q9963; Q9967

== ENCOUNTER 2024-04-27 08:31 | Inpatient (IN) | payer MEDICARE, MEDICAID ==
[2024-04-27 09:38] LABS: Hematocrit 43.2 % (42.0-52.0); Hemoglobin 14.2 g/dL (14.0-18.0); Mean Corpuscular HGB CONC 32.9 g/dL (32.0-36.0); Mean Corpuscular Hemoglobin 29.4 pg (27.0-31.0); Mean Corpuscular Volume 89.4 fL (78.0-98.0); Platelet Count 392 10x3/uL (130-400); RBC Distribution Width 13.9 % (11.5-14.5); Red Blood Cell (RBC) Count 4.83 mill/uL (4.70-6.10)
[2024-04-27 09:57] LABS: Anisocytosis SLIGHT = 6-15 cells HPF (0-5); Band 8 % (5-11); Lymphocytes 3 % (21-51); Monocytes 2 % (0-10); Neutrophil 86 % (42-75); Platelet Adequacy Comment Platelets Normal; Poikilocytosis SLIGHT = 6-15 cells HPF (0-5); Polychromasia SLIGHT = 2-3 cells HPF (0-2); Reactive Lymphocytes 1 % (0-10)
[2024-04-27 10:01] LABS: ALT (SGPT) 47 U/L (8-55); AST (SGOT) 32 U/L (5-34); Albumin 2.3 g/dL (3.4-4.8); Alkaline Phosphatase 127 U/L (40-110); Anion Gap 15 mmol/L (10-20); BUN (Urea Nitrogen) 27 mg/dL (8.4-25.7); Bilirubin, Total 0.5 mg/dL (0.2-1.2); Calc. Creatinine Clearance 0 mL/min (70-130); Calcium 9.6 mg/dL (7.8-10.44); Carbon Dioxide 22 mmol/L (23-31); Chloride 106 mmol/L (98-107); Estimated GFR 95; Globulin 4.8 g/dL (2.4-3.5); Glucose 136 mg/dL (83-110); Protein, Total 7.1 g/dL (5.8-8.1); Sodium 140 mmol/L (136-145)
[2024-04-27 10:14] LABS: Bacteria/HPF 4+ HPF (None Seen); Bilirubin Negative (Negative); Blood, Urine Trace (Negative); CAUTI Indications for Culture Alt mental st,lethar; Clarity Turbid (Clear); Glucose, Urine (Dipstick) Normal (Negative); Ketone, Urine Negative (Negative); Leukocyte 75 Leu/uL (Negative); Nitrite Negative (Negative); Protein, Urine (Dipstick) 30 mg/dL (Neg-Trace); RBC/HPF None Seen HPF (0-3); Squamous Epithelial None Seen HPF (0-3); pH, Urine 6.5 (5.0-9.0)
[2024-04-27 10:21] LABS: Urine Culture Reflex Yes Yes
[2024-04-27] MEDS ORDERED: Piperacillin/Tazobactam 4.5 GM VIAL ONE (10:26)
[2024-04-27] MEDS ORDERED: Sodium Chloride 0.9% 100 ML ONE (10:26)
[2024-04-27] MEDS ORDERED: Potassium Chloride 20 MEQ TAB ONE (10:26)
[2024-04-27 10:27] LABS: Troponin I Less than 0.010 ng/mL (< 0.028)
[2024-04-27] MEDS ORDERED: Ondansetron PF 4 MG/2 ML Vial IVP PRN (12:45)
[2024-04-27 16:07] VITALS: BMI 29.8
[2024-04-27] MEDS: Bisacodyl 10 MG SUPP PR SCH (16:09)
[2024-04-27] MEDS: Piperacillin/Tazobactam 3.375 GM in Sodium Chloride 0.9% 100 ML IVPB SCH (16:37)
[2024-04-27] MEDS: Topiramate 100 MG TAB PO SCH (19:48)
[2024-04-27] MEDS: Atorvastatin Calcium 10 MG TAB PO SCH (19:48)
[2024-04-27] MEDS: Fish Oil 1,000 MG CAP PO SCH (19:48)
[2024-04-27] MEDS: Aripiprazole 10 MG TAB PO SCH (19:48)
[2024-04-27] MEDS: PARoxetine 20 MG TAB PO SCH (19:49)
[2024-04-27] MEDS: Acetaminophen 325 MG TAB PO PRN (19:50)
[2024-04-28 06:33] LABS: #Basophils 0.05 10x3/uL (0.0-0.2); %Basophils 0.2 % (0.0-1.0); %Eosinophils 0.2 % (0.0-10.0); %Lymphocytes 7.8 % (21.0-51.0); %Monocytes 4.9 % (0.0-10.0); %Neutrophils 86.3 % (42.0-75.0); Hematocrit 43.5 % (42.0-52.0); Hemoglobin 13.7 g/dL (14.0-18.0); Mean Corpuscular HGB CONC 31.5 g/dL (32.0-36.0); Mean Corpuscular Hemoglobin 29.8 pg (27.0-31.0); Mean Corpuscular Volume 94.6 fL (78.0-98.0); Mean Platelet Volume 9.3 fL (7.4-10.4); Platelet Count 273 10x3/uL (130-400); RBC Distribution Width 14.2 % (11.5-14.5)
[2024-04-28 06:55] LABS: Anion Gap 16 mmol/L (10-20); BUN (Urea Nitrogen) 27 mg/dL (8.4-25.7); Calc. Creatinine Clearance 129 mL/min (70-130); Calcium 9.3 mg/dL (7.8-10.44); Carbon Dioxide 17 mmol/L (23-31); Chloride 110 mmol/L (98-107); Estimated GFR 99; Glucose 94 mg/dL (83-110); Potassium 3.4 mmol/L (3.5-5.1); Sodium 140 mmol/L (136-145)
[2024-04-28] MEDS: Enoxaparin 40 MG (0.4 mL) SYRINGE SC SCH (09:15)
[2024-04-28] MEDS: Mirabegron ER 25 MG ER.TAB PO SCH (09:16)
[2024-04-28] MEDS: Tamsulosin HCl 0.4 MG CAP PO SCH (09:16)
[2024-04-29 06:18] LABS: #Basophils 0.03 10x3/uL (0.0-0.2); %Basophils 0.3 % (0.0-1.0); %Eosinophils 1.7 % (0.0-10.0); %Lymphocytes 14.9 % (21.0-51.0); %Neutrophils 76.6 % (42.0-75.0); Hematocrit 38.3 % (42.0-52.0); Hemoglobin 12.3 g/dL (14.0-18.0); Mean Corpuscular HGB CONC 32.1 g/dL (32.0-36.0); Mean Corpuscular Hemoglobin 29.1 pg (27.0-31.0); Mean Corpuscular Volume 90.5 fL (78.0-98.0); Mean Platelet Volume 9.2 fL (7.4-10.4); Platelet Count 321 10x3/uL (130-400); RBC Distribution Width 14.2 % (11.5-14.5); Red Blood Cell (RBC) Count 4.23 mill/uL (4.70-6.10)
[2024-04-29 06:46] LABS: ALT (SGPT) 220 U/L (8-55); AST (SGOT) 169 U/L (5-34); Alkaline Phosphatase 175 U/L (40-110); Anion Gap 15 mmol/L (10-20); BUN (Urea Nitrogen) 28 mg/dL (8.4-25.7); Bilirubin, Total 0.4 mg/dL (0.2-1.2); Calc. Creatinine Clearance 127 mL/min (70-130); Calcium 9.1 mg/dL (7.8-10.44); Carbon Dioxide 21 mmol/L (23-31); Chloride 111 mmol/L (98-107); Estimated GFR 99; Globulin 4.4 g/dL (2.4-3.5); Glucose 93 mg/dL (83-110); Magnesium 2.2 mg/dL (1.6-2.6); Potassium 2.6 mmol/L (3.5-5.1); Protein, Total 6.4 g/dL (5.8-8.1); Sodium 144 mmol/L (136-145)
[2024-04-29] MEDS: 1/2 NS w/Potassium 20 mEq 1,000 ML IV SCH (08:55)
[2024-04-29] MEDS: Potassium Chloride 20 MEQ in Premix 1 BAG IVPB SCH (08:55)
[2024-04-30 07:32] LABS: #Basophils 0.03 10x3/uL (0.0-0.2); %Basophils 0.4 % (0.0-1.0); %Eosinophils 2.5 % (0.0-10.0); %Lymphocytes 25.7 % (21.0-51.0); %Monocytes 7.9 % (0.0-10.0); %Neutrophils 62.5 % (42.0-75.0); Hematocrit 36.8 % (42.0-52.0); Hemoglobin 11.9 g/dL (14.0-18.0); Mean Corpuscular HGB CONC 32.3 g/dL (32.0-36.0); Mean Corpuscular Volume 89.8 fL (78.0-98.0); Mean Platelet Volume 9.4 fL (7.4-10.4); Platelet Count 333 10x3/uL (130-400); RBC Distribution Width 13.6 % (11.5-14.5)
[2024-04-30 07:52] LABS: ALT (SGPT) 197 U/L (8-55); AST (SGOT) 104 U/L (5-34); Albumin 2.1 g/dL (3.4-4.8); Alkaline Phosphatase 162 U/L (40-110); Anion Gap 15 mmol/L (10-20); BUN (Urea Nitrogen) 21 mg/dL (8.4-25.7); Bilirubin, Total 0.4 mg/dL (0.2-1.2); Calc. Creatinine Clearance 133 mL/min (70-130); Calcium 8.8 mg/dL (7.8-10.44); Carbon Dioxide 20 mmol/L (23-31); Chloride 107 mmol/L (98-107); Estimated GFR 100; Glucose 83 mg/dL (83-110); Potassium 2.6 mmol/L (3.5-5.1); Protein, Total 6.1 g/dL (5.8-8.1); Sodium 139 mmol/L (136-145)
[2024-04-30] MEDS: Potassium Chloride 20 MEQ TAB PO SCH (09:12)
[2024-04-30] MEDS: Potassium Chloride 20 MEQ in Premix 1 BAG IVPB SCH (09:13)
[2024-04-30] MEDS: Potassium Chloride 40 MEQ in Premix 1 BAG IVPB SCH (09:14)
[2024-04-30 17:26] LABS: #Basophils 0.03 10x3/uL (0.0-0.2); %Basophils 0.4 % (0.0-1.0); %Eosinophils 2.3 % (0.0-10.0); %Lymphocytes 21.3 % (21.0-51.0); %Monocytes 8.6 % (0.0-10.0); %Neutrophils 66.4 % (42.0-75.0); Hematocrit 35.3 % (42.0-52.0); Hemoglobin 11.7 g/dL (14.0-18.0); Mean Corpuscular HGB CONC 33.1 g/dL (32.0-36.0); Mean Corpuscular Hemoglobin 29.4 pg (27.0-31.0); Mean Corpuscular Volume 88.7 fL (78.0-98.0); Mean Platelet Volume 8.7 fL (7.4-10.4); Platelet Count 286 10x3/uL (130-400); RBC Distribution Width 13.4 % (11.5-14.5); Red Blood Cell (RBC) Count 3.98 mill/uL (4.70-6.10)
[2024-05-01 01:13] VITALS: TEMP 98.3
[2024-05-01 05:42] LABS: #Basophils 0.03 10x3/uL (0.0-0.2); %Basophils 0.5 % (0.0-1.0); %Eosinophils 2.8 % (0.0-10.0); %Lymphocytes 27.1 % (21.0-51.0); %Monocytes 8.5 % (0.0-10.0); %Neutrophils 59.3 % (42.0-75.0); Hematocrit 36.8 % (42.0-52.0); Hemoglobin 12.2 g/dL (14.0-18.0); Mean Corpuscular HGB CONC 33.2 g/dL (32.0-36.0); Mean Corpuscular Hemoglobin 29.5 pg (27.0-31.0); Mean Corpuscular Volume 89.1 fL (78.0-98.0); Mean Platelet Volume 8.7 fL (7.4-10.4); Platelet Count 320 10x3/uL (130-400); RBC Distribution Width 13.4 % (11.5-14.5); Red Blood Cell (RBC) Count 4.13 mill/uL (4.70-6.10)
[2024-05-01 06:06] LABS: Anion Gap 13 mmol/L (10-20); BUN (Urea Nitrogen) 13 mg/dL (8.4-25.7); Calc. Creatinine Clearance 125 mL/min (70-130); Carbon Dioxide 19 mmol/L (23-31); Chloride 109 mmol/L (98-107); Estimated GFR 99; Glucose 103 mg/dL (83-110); Magnesium 2.1 mg/dL (1.6-2.6); Potassium 3.5 mmol/L (3.5-5.1); Sodium 137 mmol/L (136-145)
[2024-05-01 08:12] VITALS: BP 131/85
== END 2024-05-01 13:52 | DRG 871 ==
LOC: ERS 08:31 → ERHOLD 10:35 → T4-B 15:19
PROVIDERS: ADMIT Internal Medicine; ATTEND Internal Medicine
DX: A41.9 Sepsis, unspecified organism (principal); G93.41 Metabolic encephalopathy; N17.9 Acute kidney failure, unspecified; N39.0 Urinary tract infection, site not specified; K11.20 Sialoadenitis, unspecified; I10 Essential (primary) hypertension; F41.9 Anxiety disorder, unspecified; F32.9 Major depressive disorder, single episode, unspecified; F17.210 Nicotine dependence, cigarettes, uncomplicated; Z79.899 Other long term (current) drug therapy; Z88.8 Allergy status to other drugs, medicaments and biological substances; Z98.41 Cataract extraction status, right eye; Z98.42 Cataract extraction status, left eye; Z88.2 Allergy status to sulfonamides; N40.0 Benign prostatic hyperplasia without lower urinary tract symptoms; E78.5 Hyperlipidemia, unspecified; E87.6 Hypokalemia
CPT/HCPCS: 36415; 36416; 51701; 70450; 71045; 80048; 80053; 81001; 83605; 83735; 84484; 85025; 87040; 87077; 87086; 87186; 93005; 96361; 96365; 96366; J1650; J2543; J3480

== ENCOUNTER 2024-05-18 11:38 | Emergency (ER) | payer MEDICARE, MEDICAID ==
[2024-05-18] MEDS ORDERED: Ondansetron PF 4 MG/2 ML Vial ONE (12:44)
[2024-05-18] MEDS ORDERED: Morphine 2 MG/ML VIAL ONE (12:44)
[2024-05-18 12:52] LABS: #Basophils Less than 0.03 10x3/uL (0.0-0.2); %Basophils 0.3 % (0.0-1.0); %Eosinophils 2.2 % (0.0-10.0); %Lymphocytes 33.9 % (21.0-51.0); %Monocytes 8.5 % (0.0-10.0); %Neutrophils 54.6 % (42.0-75.0); Hematocrit 42.9 % (42.0-52.0); Hemoglobin 13.8 g/dL (14.0-18.0); Mean Corpuscular HGB CONC 32.2 g/dL (32.0-36.0); Mean Corpuscular Hemoglobin 29.1 pg (27.0-31.0); Mean Corpuscular Volume 90.3 fL (78.0-98.0); Mean Platelet Volume 8.8 fL (7.4-10.4); Platelet Count 281 10x3/uL (130-400); RBC Distribution Width 13.6 % (11.5-14.5); Red Blood Cell (RBC) Count 4.75 mill/uL (4.70-6.10)
[2024-05-18 13:09] LABS: ALT (SGPT) 40 U/L (8-55); AST (SGOT) 25 U/L (5-34); Albumin 3.3 g/dL (3.4-4.8); Alkaline Phosphatase 81 U/L (40-110); Anion Gap 15 mmol/L (10-20); BUN (Urea Nitrogen) 10 mg/dL (8.4-25.7); Bilirubin, Total 0.3 mg/dL (0.2-1.2); Calc. Creatinine Clearance 0 mL/min (70-130); Calcium 9.3 mg/dL (7.8-10.44); Carbon Dioxide 20 mmol/L (23-31); Chloride 106 mmol/L (98-107); Estimated GFR 94; Globulin 3.9 g/dL (2.4-3.5); Glucose 101 mg/dL (83-110); Lipase 58 U/L (8-78); Potassium 3.6 mmol/L (3.5-5.1); Protein, Total 7.2 g/dL (5.8-8.1); Sodium 137 mmol/L (136-145)
[2024-05-18 13:15] LABS: Troponin I Less than 0.010 ng/mL (< 0.028)
== END 2024-05-18 16:30 ==
LOC: ERS 11:38
DX: K59.39 Other megacolon (principal); I10 Essential (primary) hypertension; E78.00 Pure hypercholesterolemia, unspecified; Z79.899 Other long term (current) drug therapy
CPT/HCPCS: 71045; 74177; 83605; 83690; 83735; 84484; 93005; 94760; 96374; 96375; 99284; J2272; J2405; Q9967; 36415; 80053; 84443; 85025